=== PATIENT | male | born 1990 | race Caucasian/White ===

== ENCOUNTER 2020-11-07 17:01 | Inpatient (IN) | payer OTHER ==
[~2020-11-07] VITALS: Ht 177.8 cm; Wt 83.9 kg
--- NOTE | ~2020-11-07 | HC ---
[facility] [place] [address] CONSULTATION Name: CALI BARBOZA Room #: 170-3 ADM IN M.R.#: [id number] Admission: 11/07/20 Attend Phys: Eliud Dey MD Discharge: Date of : 89 Report #: [id number] THIS REPORT FOR: cc: FAM - Family physician unknown FAM - Family physician unknown Paulie Lieberman MD ~ DATE OF SERVICE: 11/07/2020 HISTORY OF PRESENT ILLNESS: This is a 30-year-old male patient who was evaluated by me for migraine headache. This patient's symptoms started when he was early teenager. He used to have symptoms every 1-2 years. He will basically have some headache with photophobia. They have become more frequent, but still there about once a month. He will get severe headache. It is also associated with photophobia and it will last several hours. He typically takes Imitrex and then becomes better. He may have some confusion with that, but today he had an headache from which his speech got slurred. He underwent CT angiogram and CT perfusion and that was within normal limits. He became better, then somewhat became worse, but not as much as he was before. He was way outside the window for any TPA as I understand from the provider who saw this patient in the Emergency Room. REVIEW OF SYSTEMS: He follows up with the primary care. She has given this patient Imitrex. She has also given this patient Depakote. He is otherwise pretty healthy. His drug screen is negative. His labs looked fairly well except somewhat decreased potassium. REVIEW OF SYSTEMS: A 14-point review of system was basically unremarkable. PAST MEDICAL HISTORY: Positive for migraine. SOCIAL HISTORY: He drinks alcohol once a while. PHYSICAL EXAMINATION: The patient's examination indicate to me he is alert. He is responsive. He is able to follow simple and complex command. He thought maybe somewhat slow according to the mother and him, but he can sustain the conversation. It does take him a little while some time to say what he wants to say, but apparently he is much improved. He moves all 4 extremities. Strength looks symmetrical and normal. His sensation looks intact. Reflexes look symmetrical. There is no meningeal sign. He is photophobic and very difficult to check for any papilledema. There is no carotid bruit. Cardiac examinations appear noncontributory. There is no meningeal sign. Cardiorespiratory examinations appear unremarkable. Vital signs indicate a blood pressure of 116/59, respirations 12, pulse is 65, temperature is 97.9. 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 [address] [address] CONSULTATION Name: CALI BARBOZA Room #: [facility] IN ..#: [id number] Admission: 11/07/20 Attend Phys: Eliud Dey MD Discharge: Date of : 89 Report #: [id number] I discussed the diagnosis with them. I discussed with them that he probably should take his amitriptyline on a regular basis or go on some other medication like Topamax. I told him that he should not take Imitrex. This is because of the vasoconstrictive effect of it. He does need an echocardiogram to look for foramen ovale. We talked about doing admission and doing as an outpatient. We also discussed it in relation to COVID. He has already been in the Emergency for several hours now. He has become somewhat worse and somewhat fluctuating. After discussing all the options with them, the family decided that they want to stay here. I talked to the Emergency Room provider and told them to give him a bolus of normal saline and aspirin as well as 1 dose of 500 mg of IV Depakote and they can repeat it x 1 if necessary. He should be watched closely. He should have an echocardiogram with bubble study tomorrow and he should also have an MRI. Thank you very much for this referral and if you have any question, please feel free to contact me. More than 50 minutes of time was spent taking care of this patient today and majority was spent counseling and coordinating. By: 24 37 Paulie Lieberman MD /gail
--- NOTE | ~2020-11-07 | EMS ---
[address] [address] EMS Patient Care Report Name: CALI BARBOZA Room #: PRE KARLEY M.RMack#: [id number] Admission: Attend Phys: Discharge: Date of : [birth year] Report #: [id number] THIS REPORT FOR: //name// Report Transmitted: 11/07/2020 17:11 EMS Care Summary [facility] Incident [id number] @ 11/07/2020 16:12 Incident Location [address] [place] [address] Patient CALI BARBOZA Male, 30 Years 1990 Patient Address [address] [place] [address] Patient History Migraine, Patient Allergies No known allergies, Patient Medications Amitriptyline, Sumatriptan, Chief Complaint Difficulty Speaking Disposition Transported No Lights/[place] Dispatch Reason Stroke/CVA Transported To [facility] Narrative Dispatched to an apartment for a 30 y/o male pt., dispatch reason Stroke. Arrived to find male pt sitting on his couch, with a family member present. Pts [facility] [address] [place] [address] EMS Patient Care Report Name: CALI BARBOZA Room #: PRE M.R.#: [id number] Admission: Attend Phys: Discharge: Date of : 89 Report #: [id number] family member states he had a migraine earlier and took his medication. This afternoon while on the phone with his mother, she notices he had difficulty speaking and forming sentences. He states he feels confused and feels like his speech is abnormal. He denies injury but states he continues to have a slight headache. All assessments and vitals wnl as stated. CSS as stated. Pt denies alcohol, drugs, or other medications. Pt mother arrived and discussion had. She states his mentation and speech seem very abnormal for him. Moved pt to ambulance and secured to cot. Further assessment with EKG and PH12L all unremarkable. Pt states he has numbness and tingling in arms during transport. He states he feels nauseous and slightly short of breath. Pt remained A/O during transport. No vomiting or further change in conditions. Arrived to [facility] without incident. Moved pt into ER, gave verbal report and transferred care to staff at [facility]. Cleared from Hosp. Initial Vitals @16:28P: 87,BP: 131/75, @16:41P: 98, @16:21P: 96,R: 30,BP: 144/84,Pain: 0/10,GCS: 15,Temp: 98.1F,Glucose: 115,SpO2: 100,Revised Trauma: 11, @16:40P: 98,R: 30,BP: 133/81,Pain: 0/10,GCS: 15,SpO2: 100,Revised Trauma: 11,NV Suspected: false @16:51P: 85,BP: 124/68,Pain: 0/10,GCS: 15,SpO2: 100,NV Suspected: false @16:39P: 101,BP: 92/59, Assessments @16:22MENTAL:Confused,Person Oriented,Event Oriented,Time Oriented,Place Oriented,SKIN:Cold,Pale,HEENT:Head/Face: No Abnormalities,Neck/Airway: No Abnormalities,LUNG SOUNDS:General: Nausea,ABDOMEN:General: Nausea,PELVIS//GI:No Abnormalities,EXTREMITIES:Right Arm: Abnormal Sensation,Left Arm: Abnormal Sensation,Left Leg: No Abnormalities,Right Leg: No Abnormalities,PULSE:Radial: 2+ Normal,NEURO:Other, Impression Altered Mental Status Procedures @16:4112-Lead ECGResponse: UnchangedSucceeded@16:24Surgical Mask on PatientResponse: Unchanged Timeline 16:10,Call Received 16:10,Psap Call 16:12,Dispatched 16:13,En Route 16:17,On Scene [address] [address] EMS Patient Care Report Name: TAMRACALI Timmons Room #: [facility] M.R.#: [id number] Admission: Attend Phys: Discharge: Date of : 89 Report #: [id number] 16:20,At Patient 16:21,BP: 144/84 M,PULSE: 96,RR: 30 R,SPO2: 100 Ox,ETCO2: ,B,PAIN: 0,GCS: 15, 16:24,Surgical Mask on Patient,Response: Unchanged 16:28,BP: 131/75 M,PULSE: 87,RR: R,SPO2: Ox,ETCO2: ,BG: ,PAIN: ,GCS: , 16:39,BP: 92/59 M,PULSE: 101,RR: R,SPO2: Ox,ETCO2: ,BG: ,PAIN: ,GCS: , 16:40,BP: 133/81 M,PULSE: 98,RR: 30 R,SPO2: 100 Ox,ETCO2: ,BG: ,PAIN: 0,GCS: 15, 16:41,12-Lead ECG,Response: UnchangedSucceeded, 16:41,BP: / M,PULSE: 98,RR: R,SPO2: Ox,ETCO2: ,BG: ,PAIN: ,GCS: , 16:44,Depart Scene 16:51,BP: 124/68 M,PULSE: 85,RR: R,SPO2: 100 Ox,ETCO2: ,BG: ,PAIN: 0,GCS: 15, 16:56,At Destination 17:17,Call Closed Disclaimer [email or web address] Copyright 2020 [email or web address] This EMS Care Summary contains data elements from the applicable legal record (which may be displayed differently). It is designed to provide pertinent information for the following purposes: continuity of care, clinical quality, and state data reporting. The complete legal record is available to ED staff and administrators of the receiving hospital in [employer] Patient Tracker. All data is provided "as is."
[~2020-11-07 17:01] MED LIST: LORTABELXR PO; NEXIUM PO; PHENERGAN 25 MG25 M1 PO
[2020-11-07 17:08] VITALS: BP 128/66
[2020-11-07] MEDS ORDERED: ONZETRA XSAIL11 MG PO (17:11)
[2020-11-07] MEDS ORDERED: AMITRIPTYLINE H25 M3 PO (17:12)
[2020-11-07 17:42] LABS: ABSOLUTE NEUTROPHILS 8.4 thou/uL (1.4-8.2); BASOPHILS 0.3 % (0.0-2.0); EOSINOPHILS 0.2 % (0.0-3.0); HEMATOCRIT 43.3 % (42.0-52.0); HEMOGLOBIN 14.6 gm/dL (14.0-18.0); LYMPHOCYTES 12.7 % (24.0-44.0); MCH 30.1 pg (26.0-34.0); MCHC 33.6 g/dL (28.0-37.0); MCV 89.4 fL (80.0-100.0); MONOCYTES 4.2 % (1.0-8.0); PLATELET COUNT 257 thou/uL (150-400); POLYS 82.6 % (36.0-66.0); RBC 4.85 mil/uL (4.50-6.00); RDW 12.9 % (10.5-14.5); WBC 10.2 thou/uL (4.0-11.0)
[2020-11-07 17:49] LABS: CALCIUM 9.9 mg/dL (8.5-10.1); CREATININE 1.1 mg/dL (0.7-1.3); POTASSIUM 3.2 mmol/L (3.5-5.1)
[2020-11-07 17:53] LABS: AMP/METHAMP Negative (Negative); BARBITURATES Negative (Negative); BENZODIAZEPINES Negative (Negative); COCAINE Negative (Negative); METHADONE Negative (Negative); OPIATES Negative (Negative); PCP Negative (Negative)
[2020-11-07 17:55] LABS: ALBUMIN 4.6 g/dL (3.4-5.0); TOTAL BILIRUBIN 0.9 mg/dL (0.2-1.0); TOTAL PROTEIN 7.7 g/dL (6.4-8.2)
[2020-11-07 18:08] LABS: PROTIME 10.5 Seconds (9.3-11.4)
[2020-11-07 18:26] LABS: URINE BILIRUBIN NEGATIVE (Negative); URINE BLOOD NEGATIVE (Negative); URINE CLARITY CLEAR; URINE COLOR YELLOW; URINE GLUCOSE-RANDOM* NEGATIVE (Negative); URINE KETONES 3+ (Negative); URINE LEUKOCYTES-REFLEX NEGATIVE (Negative); URINE NITRITE-REFLEX NEGATIVE (Negative); URINE PROTEIN (DIPSTICK) NEGATIVE (Negative); URINE SPECIFIC GRAVITY 1.015 (1.005-1.035); URINE UROBILINOGEN 0.2 E.U./dl (0.2-1.0)
[2020-11-07 18:31] LABS: URINE REDUCING SUBSTANCE NEGATIVE
[2020-11-07 23:35] VITALS: BP 121/57
[2020-11-08 01:02] VITALS: BP 121/61
[2020-11-08 01:30] VITALS: BP 132/63
--- NOTE | 2020-11-08 02:17 | NUR ---
PT ADMITTED TO THE UNIT AT APPROXIMATELY 0145. PT IS A/O X4 AND IS UP SBA TO THE BR. ADMISSION COMPLETE. PT C/O HEAD PAIN OF A 5 WHICH HAS HE STATED LOWERED SINCE BEING IN THE EMERGENCY ROOM. PT IS ROOM AIR. VSS AT THIS TIME. FLUIDS STARTED AND MEDICATION GIVEN DIRECTED. FALL PRECAUTIONS IMPLEMENTED. CALL LIGHT IS WITHIN REACH. PT EDUCATED ON HOW TO CALL FOR ASSISTANCE. WILL CONTINUE TO MONITOR.
[2020-11-08 07:06] VITALS: BP 112/65
--- NOTE | 2020-11-08 09:20 | 2DMMODE ---
[facility] [address] [place] [address] 2 D/M-MODE ECHOCARDIOGRAM Name: CALI BARBOZA Room #: 459-P ADM IN M.R.#: [id number] Admission: 11/07/20 Attend Phys: Eliud Dey MD Discharge: Date of : 89 Report #: [id number] THIS REPORT FOR: cc: FAM - Family physician unknown FAM - Family physician unknown Osman Song MD ~ APPROVED REPORT Study performed: 11/08/2020 08:10:49 EXAM: Comprehensive 2D, Doppler, and color-flow Echocardiogram Patient Location: Bedside Room #: 459 Status: routine BSA: 2.02 HR: 65 bpm BP: 132/63 mmHg Rhythm: NSR Other Information Study Quality: Good Indications Migraine 2D Dimensions RVDd: 38.80 mm IVSd: 9.13 (7-11mm) LVOT Diam: 23.65 (18-24mm) LVDd: 50.60 mm PWd: 8.62 (7-11mm) Ascending Ao: 27.92 (22-36mm) LVDs: 34.53 (25-40mm) Aortic Root: 29.34 mm IVC: 13.00 mm Volumes Left Atrial Volume (Systole) Single Plane 4CH: 41.69 mL Single Plane 2CH: 63.11 mL LA ESV Index: 32.00 mL/m2 Aortic Valve AoV Peak Maxwell.: 1.25 m/s AO Peak Gr.: 6.25 mmHg LVOT Max P.12 mmHg LVOT Max V: 1.02 m/s ANURAG Vmax: 3.57 cm2 [facility] [address] [place] [address] 2 D/M-MODE ECHOCARDIOGRAM Name: CALI BARBOZA Shanelle Room #: 459-P [facility] IN ..#: [id number] Admission: 11/07/20 Attend Phys: Eliud Dey MD Discharge: Date of : 89 Report #: [id number] Mitral Valve E/A Ratio: 2.0 MV Decel. Time: 180.10 ms MV E Max Maxwell.: 0.94 m/s MV A Maxwell.: 0.47 m/s MV PHT: 52.23 ms IVRT: 73.82 ms Pulmonary Valve PV Peak Maxwell.: 0.99 m/s PV Peak Gr.: 3.92 mmHg Pulmonary Vein P Vein S: 0.54 m/s P Vein A: 0.24 m/s P Vein D: 0.48 m/s P Vein A Dur.: 106.1 msec P Vein S/D Ratio: 1.13 Tricuspid Valve TR Peak Maxwell.: 2.01 m/s TR Peak Gr.: 16.15 mmHg PA Pressure: 21.00 mmHg Left Ventricle The left ventricle is normal size. There is normal LV segmental wall motion. There is normal left ventricular wall thickness. Left ventricular systolic function is normal. The left ventricular ejection fraction is within the normal range. LVEF is 55-60%. The left ventricular diastolic function is normal. Right Ventricle The right ventricle is normal size. The right ventricular systolic function is normal. Atria The left atrium size is normal. Possible small PFO is noted with agitated saline injection. The right atrium size is normal. Aortic Valve The aortic valve is normal in structure. No aortic regurgitation is present. There is no aortic valvular stenosis. Mitral Valve The mitral valve is normal in structure. There is no mitral valve regurgitation noted. No evidence of mitral valve stenosis. Tricuspid Valve The tricuspid valve is normal in structure. There is trace tricuspid [facility] [address] [place] [address] 2 D/M-MODE ECHOCARDIOGRAM Name: CALI BARBOZA Room #: 459-P [facility] IN .R.#: [id number] Admission: 11/07/20 Attend Phys: Eliud Dey MD Discharge: Date of : 89 Report #: [id number] regurgitation. Estimated PAP 21 mmHg. Pulmonic Valve The pulmonary valve is normal in structure. Trace pulmonic regurgitation. Great Vessels The aortic root is normal in size. IVC is normal in size and collapses >50% with inspiration. Pericardium There is no pericardial effusion. <Conclusion> The left ventricle is normal size. There is normal left ventricular wall thickness. Left ventricular systolic function is normal. The right ventricle is normal size. The left atrium size is normal. Possible small PFO is noted with agitated saline injection. The aortic valve is normal in structure. The mitral valve is normal in structure. There is trace tricuspid regurgitation. Estimated PAP 21 mmHg. <ELECTRONICALLY SIGNED> By: Osman Song MD 11/08/20918 8 8 Osman Song MD /INF
[2020-11-08 12:33] LABS: ALBUMIN 3.6 g/dL (3.4-5.0); BUN 10 mg/dL (7-18); CALCIUM 8.7 mg/dL (8.5-10.1); CHOLESTEROL 177 mg/dL (<200); CO2 27 mmol/L (21-32); CREATININE 1.2 mg/dL (0.7-1.3); GLUCOSE 83 mg/dL (74-106); HDL CHOLESTEROL 50 mg/dL (>40); LDL CHOLESTEROL 110 mg/dL (<100); SGOT 15 U/L (15-37); SGPT 33 U/L (30-65); TC:HDL 3.5 Ratio (Not establshd); TOTAL BILIRUBIN 0.8 mg/dL (0.2-1.0); TOTAL PROTEIN 6.5 g/dL (6.4-8.2); TRIGLYCERIDE 86 mg/dL (<150); VLDL 17 mg/dL (<40)
--- NOTE | 2020-11-08 12:37 | NUR ---
ASSUMED PT CARE THIS AM. PT AMBULATORY TO BATHROOM. NO COMPLAINTS OF PAIN, JUST OF LIGHT SENSITIVITY. IV PATENT, MEDS AND FLUIDS INFUSING WELL. REPOSITIONS SELF IN BED. TOOK MEDS WELL. HYDRATION ENCOURAGED.
[2020-11-08 12:40] LABS: ANION GAP 7 mmol/L (7-16); CHLORIDE 106 mmol/L (98-107); SODIUM 140 mmol/L (136-145)
[2020-11-08 12:41] LABS: POTASSIUM 4.2 mmol/L (3.5-5.1)
[2020-11-08] MEDS ORDERED: ASA81BEC PO (14:32)
[2020-11-08] MEDS ORDERED: TOPAMAX 25 MG T25 M1 PO (14:33)
[2020-11-08 14:49] VITALS: BP 112/65
[2020-11-09 01:06] LABS: GLYCOHEMOGLOBIN (HGB A1C) 5.3 % (4.8-5.6)
== END 2020-11-08 16:15 | disposition home or self-care (01) | DRG 103 ==
LOC: ER 17:01 → 4W 21:51 → EROBS 21:51 → 4W 11-08 01:07
PROVIDERS: Nurse Practitioner Family; Physician Assistant; Psychiatry & Neurology Neuromuscular Medicine; ADMIT Hospitalist; ATTEND Hospitalist
DX: G43.409 Hemiplegic migraine, not intractable, without status migrainosus (principal); Q21.1 Atrial septal defect; E87.6 Hypokalemia; R73.9 Hyperglycemia, unspecified; K21.9 Gastro-esophageal reflux disease without esophagitis; Z79.899 Other long term (current) drug therapy; Z88.2 Allergy status to sulfonamides